=== PATIENT | male | born 1995 | race Two or more races ===

== ENCOUNTER 2020-07-02 13:07 | Emergency (ER) | payer SELFPAY ==
[2020-07-02] MEDS ORDERED: CYCLOBENZAPRINE 10 MG TABLET PO STA (15:24)
[2020-07-02] MEDS ORDERED: IBUPROFEN 800 MG TABLET PO STA (15:24)
[2020-07-02] MEDS ORDERED: oxyCODONE 5 MG TABLET PO STA (15:24)
--- NOTE | 2020-07-02 15:26 | ED Physician Documentation ---
PD HPI BACK PAIN - Stated complaint Stated Complaint: LOW BACK PAIN - Chief complaint Chief Complaint: Back Pain - History obtained from History obtained from: Patient - Additional information Additional information: 2 days Severe low back pain only when he moves or tries to get up. At rest it is minimal to nonexistent. No saddle anesthesia, incontinence, fevers. No history of prior. No injuries. Review of Systems Constitutional: reports: Reviewed and negative Ears: reports: Reviewed and negative Nose: reports: Reviewed and negative Cardiac: reports: Reviewed and negative Respiratory: reports: Reviewed and negative PD PAST MEDICAL HISTORY - Present Medications Home Medications: Ambulatory Orders Medication Instructions Recorded Confirmed Cyclobenzaprine [Flexeril] 10 mg PO TID PRN #20 tablet 07/02/20 Ibuprofen [Motrin] 800 mg PO Q8H PRN #30 tablet 07/02/20 Oxycodone HCl/Acetaminophen 1 - 2 each PO Q6H PRN #14 tablet 07/02/20 [Percocet 5-325 mg Tablet] - Allergies Allergies/Adverse Reactions: Allergies Allergy/AdvReac Type Severity Reaction Status Date / Time No Known Drug Allergies Allergy Verified 07/02/20 13:22 PD ED PE NORMAL - Vitals Vital signs reviewed: Yes - General General: Alert and oriented X 3 (Comfortable at rest but winces with motion) - Back Back: No spinal TTP, Other (The patient has equal and normal Achilles and patellar reflexes bilaterally. Normal sensation in all areas of the legs. Patient denies saddle anesthesia. Normal strength in flexion-extension at the ankles, knees, and flexion of the hips.) - Neuro Neuro: Alert and oriented X 3, Normal speech Results - Vitals Vitals: Vital Signs - 24 hr 07/02/20 13:17 Temperature 36.7 C Heart Rate 80 Respiratory 18 Rate Blood Pressure 127/70 O2 Saturation 96 Oxygen O2 Source Room air PD MEDICAL DECISION MAKING - ED course ED course: This patient has seemingly uncomplicated musculoskeletal back pain. The patient has no "red flags." Specifically denies IV drug use, fevers, incontinence, saddle anesthesia. Spinal epidural abscess was considered, given that the patient has no fever, is not diabetic, has no spinal tenderness, does not use IV drugs, and has no bilateral neurologic symptoms, the diagnosis of spinal epidural abscess is considered exceedingly unlikely. Departure - Departure Disposition: Home, Self Care Clinical Impression: Back spasm Condition: Good Record reviewed to determine appropriate education?: Yes Instructions: ED Spasm Back No Trauma Prescriptions: Cyclobenzaprine [Flexeril] 10 mg PO TID PRN #20 tablet PRN Reason: Spasms Ibuprofen [Motrin] 800 mg PO Q8H PRN #30 tablet PRN Reason: PAIN &/OR FEVER Oxycodone HCl/Acetaminophen [Percocet 5-325 mg Tablet] 1 - 2 each PO Q6H PRN #14 tablet PRN Reason: pain Comments: Call your doctor to arrange a follow-up appointment, make the next available appointment. In the interim, return anytime if worse or if new symptoms develop. Do not drink or drive while taking narcotic pain medication. Note that many narcotic pain relievers also contain Tylenol/acetaminophen. Please ensure that your total dose of acetaminophen from all sources does not exceed 3 g (3000 mg) per day. You may get constipated while on this medication. Take a stool softener such as Colace twice a day while you are on it. Also add an [id number] laxative such as senna or MiraLAX on any day that you do not have a bowel movement. If you received a narcotic pain medication or sedative while in the emergency department, do not drive for the next 24 hours. Forms: Activity restrictions
[2020-07-02 15:35] VITALS: BP 111/60
== END 2020-07-02 15:53 | disposition home or self-care (01) ==
LOC: ED 13:07
DX: M62.830 Muscle spasm of back (principal); M54.5 Low back pain
CPT/HCPCS: 99283; A9270

== ENCOUNTER 2020-10-21 11:10 | Emergency (ER) | payer SELFPAY ==
--- NOTE | 2020-10-21 12:13 | ED Physician Documentation ---
PD HPI HEENT - Stated complaint Stated Complaint: LUMP ON NECK - Chief complaint Chief Complaint: Heent - History obtained from History obtained from: Patient - Additional information Additional information: 25-year-old gentleman has developed a painful mass on the left side of the neck over the last 4 days. No history of similar issues. No fevers with it. No dental pain or sore throat. Review of Systems Constitutional: reports: Reviewed and negative Eyes: reports: Reviewed and negative Ears: reports: Reviewed and negative Nose: reports: Reviewed and negative PD PAST MEDICAL HISTORY - Past Surgical History Past Surgical History: No - Present Medications Home Medications: Ambulatory Orders Medication Instructions Recorded Confirmed Amox/Clav 875/125 [Augmentin] 1 each PO Q12H #20 tab 10/21/20 - Allergies Allergies/Adverse Reactions: Allergies Allergy/AdvReac Type Severity Reaction Status Date / Time No Known Drug Allergies Allergy Verified 10/21/20 11:24 - Social History Does the pt smoke?: No Smoking Status: Never smoker Does the pt drink ETOH?: No Does the pt have substance abuse?: No - Immunizations Immunizations are current?: Yes PD ED PE NORMAL - Vitals Vital signs reviewed: Yes - General General: Alert and oriented X 3, No acute distress - HEENT HEENT: PERRL, EOMI, Other (There is a large fluctuant mass inferior to the angle of the jaw on the left, it is mildly tender but there is no cellulitis or skin change. No obvious dental infection. He has large tonsils, but they do not appear inflamed.) - Neck Neck: Supple, no meningeal sign, No bony TTP - Neuro Neuro: Alert and oriented X 3, Normal speech - Psych Psych: Normal mood, Normal affect Results - Vitals Vitals: Vital Signs - 24 hr 10/21/20 11:22 Temperature 36.2 C L Heart Rate 98 Respiratory 18 Rate Blood Pressure 131/83 H O2 Saturation 99 Oxygen O2 Source Room air PD MEDICAL DECISION MAKING - ED course ED course: Bedside ultrasound of the mass demonstrates the internal contents to be fluid to density. 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 I discussed the case by phone with Dr. Toan Naranjo, ENT specialist in [place]. He does not want me to I&D or aspirate the cyst but would simply like to see him in follow-up and took his name. Departure - Departure Disposition: 01 Home, Self Care Clinical Impression: Branchial cleft cyst Condition: Good Record reviewed to determine appropriate education?: Yes Prescriptions: Amox/Clav 875/125 [Augmentin] 1 each PO Q12H #20 tab Comments: As discussed, your examination and ultrasound is consistent with a branchial cleft cyst. This is an infected fluid collection that frankly you have always had but it only gets large and noticeable and tender when it gets infected. I discussed the case by phone with Dr. Toan Naranjo, an shear operator helper to has a clinic in [facility]. They would like to see you this coming week. First thing on Friday call their number, to schedule an appointment.
[2020-10-21] MEDS ORDERED: AMOX/CLAV 875 MG/125 MG TABLET PO STA (12:22)
[2020-10-21 12:52] VITALS: BP 136/69
== END 2020-10-21 12:52 | disposition home or self-care (01) ==
LOC: ED 11:10
DX: Q18.0 Sinus, fistula and cyst of branchial cleft (principal)
CPT/HCPCS: 99282; 99283; A9270

== ENCOUNTER 2021-12-12 01:28 | Emergency (ER) | payer OTHER ==
[2021-12-12 01:37] VITALS: BP 137/93
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
== END 2021-12-12 02:06 | disposition home or self-care (01) ==
LOC: ED 01:28
DX: Z02.89 Encounter for other administrative examinations (principal); S40.811A Abrasion of right upper arm, initial encounter; V43.52XA Car driver injured in collision with other type car in traffic accident, initial encounter
CPT/HCPCS: 99281; 99282